=== PATIENT | male | born 1960 | race Caucasian/White ===

== ENCOUNTER 2024-01-13 12:34 | Emergency (ER) | payer BC, SELFPAY ==
[2024-01-13] VITALS (9 sets, daily range): BP systolic 178–223; BP diastolic 100–140; BMI 38.5
[2024-01-13 13:04] LABS: % Basophils 1.4 % (0-2); % Eosinophils 2.2 % (0-6); % Immature Granulocytes 0.3 % (0-0.5); % Lymphocytes 33.5 % (20.5-51.1); % Monocytes 9.6 % (1.7-9.3); Absolute Basophils 0.1 10^3/uL (0-0.2); Absolute Eosinophils 0.2 10^3/uL (0-0.7); Absolute Lymphocytes 2.6 10^3/uL (1.2-3.4); Absolute Monocytes 0.7 10^3/uL (0.1-0.6); Absolute Neutrophils 4.1 10^3/uL (1.4-6.5); Hematocrit 46.7 % (39.0-52.0); Hemoglobin 16.8 g/dL (13.0-18.0); Mean Corpuscular Hgb 30.7 pg (27.0-31.0); Mean Corpuscular Volume 85.4 fL (80.0-94.0); Mean Platelet Volume 11.1 fL (7.4-10.4); Nucleated Red Blood Cells % 0 % (-); Platelet Count 211 10^3/uL (130-400); Red Blood Cell Count 5.47 10^6/uL (4.70-6.10); Red Cell Dist. Width 13.4 % (11.5-14.5); White Blood Cell Count 7.7 10^3/uL (4.8-10.8)
[2024-01-13 13:17] LABS: ALT (SGPT) 34 U/L (0-50); AST (SGOT) 32 U/L (17-59); Albumin 4.6 g/dl (3.5-5.0); Alkaline Phosphatase 83 U/L (38-126); Blood Urea Nitrogen 15 mg/dl (9-20); Calcium 9.9 mg/dl (8.4-10.2); Carbon Dioxide 18 mmol/L (22-30); Chloride 106 mmol/L (98-107); Glucose 101 mg/dl (70-99); Potassium 4.1 mmol/L (3.5-5.1); Sodium 135 mmol/L (135-145); Total Bilirubin 0.7 mg/dl (0.2-1.3); Total Protein 8.1 g/dl (6.3-8.2); eGFR > 60.00
[2024-01-13 13:28] LABS: Troponin I < 0.012 ng/ml
--- NOTE | 2024-01-13 14:15 | ED.GENMED ---
History of Present Illness
General
Chief Complaint: Chest Pain
Source: patient
Exam Limitations: none
Time Seen by Provider: 01/13/24 13:18
Nursing documentation reviewed up to this point in time: agreed with
Travel History
Have you had any contact with someone who has COVID-19?: No
Do you have any symptoms of coronavirus? Fever > 100 degrees, chills, cough, shortness of breath, sore throat, loss of taste or smell, muscle aches, or headache?: No
History of Present Illness
History of Present Illness:
63-year-old male with a past medical history of hypertension. Presents to the emergency room for evaluation of hypertension. Patient reports that his blood pressure has been somewhat difficult to control; he is on Bystolic 20 mg p.o. daily,
valsartan�hydrochlorothiazide 320-25 mg daily; last week his primary doctor switched him from amlodipine 10 mg daily to diltiazem 240 mg daily. He says that after the switch his blood pressures were actually quite good he says ranging in the
110-120 systolic range. He says that over the past few days he has noticed gradual increase in his blood pressure today his blood pressure spiked up as high as 180�200 systolic. He says that he believes he got anxious started feel slightly dizzy
and had some slight chest pressure for short period of time. He decided to come to the emergency room to be assessed. He says symptoms have resolved since arrival here in the emergency room he feels much more calm. He denies any chest pain,
shortness of breath, headache, change in his vision, change in his speech, focal weakness or numbness in his extremities. He denies any other complaints. He follows with Dr. Vidales for primary care.
Past History
Past History
ED Past Medical History: HTN
ED Past Surgical History: None
Social History
Tobacco: Non-smoker
Alcohol: None
Drug: None
Personal:
Living: with family
Review of Systems
Review of Systems
All Other Systems: ROS reviewed and negative except as documented in HPI and ROS
Constitutional: Denies fever or chills
EENT: Denies sore throat or runny nose
Respiratory: Denies cough or trouble breathing
Cardiac: Reports chest pain; Denies diaphoresis or palpitations
ABD/GI: Denies abdominal pain, nausea or vomiting
: Denies flank pain
Musculoskeletal: Denies neck pain or back pain
Neurological: Denies headache, weakness or numbness
Phy Exam
Physical Exam
Physical Exam:
General: Awake, alert, oriented x3; no acute distress
Head: Normocephalic, atraumatic
Eyes: Conjunctiva normal, pupils equal round reactive to light bilaterally
Throat: Airway intact, handling secretions
Neck: Trachea midline, supple without meningismus
Lungs: Clear to auscultation bilaterally, no wheezing, rales, rhonchi
Heart: Regular rate and rhythm, no murmurs, gallops, or rubs
Abd: Soft, non distended, nontender with no masses
Neuro: Cranial nerves intact, speech fluid with no dysarthria or aphasia, no motor or sensory deficits
Skin: no rash
Extremities: No edema in extremities, equal pulses in all extremities
Scores
Heart Failure Risk
Heart Failure Risk Score: Not Applicable
Heart Score for Chest Pain Patients
STEMI patient?: Not applicable
Withdrawal Assessment of Alcohol
Withdrawal Assessment Completed?: Not applicable
Course
Orders/Labs/Results
Orders:
Orders
01/13/24 12:37
ECG [Electrocardiogram (*1)] Urgent
Reason for Study: Chest Pain
EKG- Treatment ONCE
01/13/24 12:53
Complete Blood Count/With Diff Urgent
Comprehensive Metabolic Panel Urgent
Troponin I Urgent
01/13/24 14:09
HydrALAZINE [Apresoline] 10 mg IV NOW STA
01/13/24 15:07
Troponin I Urgent
Abnormal Lab Results
01/13/24
12:53
MPV 11.1 H fL
(7.4-10.4)
Absolute Monos (auto) 0.7 H 10^3/uL
(0.1-0.6)
Monocytes % 9.6 H %
(1.7-9.3)
Carbon Dioxide 18 L mmol/L
(22-30)
Glucose 101 H mg/dl
(70-99)
01/13/24 12:53
01/13/24 12:53
Vital Signs
Initial and Last Documented VS:
Initial Vital Signs
Temp Pulse Resp BP Pulse Ox
36.9 C 68 20 219/130 94
01/13/24 12:45 01/13/24 12:45 01/13/24 12:45 01/13/24 12:45 01/13/24 12:45
Last Documented Vital Signs
Temp Pulse Resp BP Pulse Ox
36.9 C 61 20 178/100 94
01/13/24 12:45 01/13/24 15:50 01/13/24 12:45 01/13/24 15:50 01/13/24 12:45
MDM/Problems Addressed
Differential Diagnosis Includes:
Chest pressure/dizziness: dysrhythmia, anemia, acute MD, anxiety
MDM/Problems Addressed:
63-year-old male with history as above presents for evaluation of hypertension; he says that blood pressure was very high and he started to feel slightly dizzy and had pressure in his chest he believes related to anxiety. Medication regimen as
described above had a recent change last week from amlodipine to diltiazem. He presented with a blood pressure of 219/130 but vital signs otherwise normal. By the time arrival in the room his blood pressure improved to 185/135--still significantly
elevated. Plan to place an IV check labs including a CBC and a CMP will check troponin and EKG although low suspicion for acute MD. Nothing on exam to suggest acute aortic dissection despite his significant blood pressure elevation, symptoms have
completely resolved and in my judgment no further testing indicated for this diagnosis. Will monitor closely reassess after the above.
Initial labs reviewed: CBC unremarkable, CMP no clinically significant abnormalities, troponin undetectable. EKG shows no concerning changes. Blood pressure remains significantly elevated will treat with some low-dose hydralazine. I called
patient's primary doctor and discussed blood pressure medications, he recommended having patient double dose of diltiazem for the next few days he will see patient in the office on to further discuss blood pressure management.
Repeat troponin undetectable, blood pressure improving, plan to discharge with follow-up plan as above. Patient comfortable with this plan. Spoke about return precautions all questions answered.
Chronic conditions affecting care:
Hypertension
Acute Exacerbation and/or Progression of Chronic Illness:
Acutely hypertensive
*Pulse Oximetry
Patient hypoxic: no
*EKG
Interpreted by ED Provider?: Yes
Comparison EKG: no changes
Heart Rate: 69
Rate: normal
Rhythm: sinus
[place]: left axis deviation
QRS Pattern: left vent hypertrophy
Ischemia: no ischemia
*Critical Care Note
Total Time (30-74mins, 75-104mins- exclusive of procedures): Not Applicable
Data Reviewed
Review of Other/Old Records Reveals: Labs and Records
Source: patient and records
Patient Management
Discussion with other providers: PCP (Discussed with patient's primary physician)
ED Attending Note
-
Portions of this chart may have been created with voice recognition software.� Occasional wrong word or��sound alike� substitutions may have occurred due to the inherent limitations of voice recognition software.
Discharge Plan
Departure
Patient Disposition: Home (Routine Discharge)
Date of Disposition: 01/13/24
Time of Disposition: 16:05
Patient with high blood pressure during this ER visit?: Yes
Discharge Problem:
Hypertensive urgency
Instructions: BLOOD PRESSURE
Prescriptions:
No Action
aspirin 81 MG tablet,delayed release (DR/EC)
81 mg PO DAILY
amlodipine 10 MG tablet
10 mg PO DAILY
omeprazole magnesium [Prilosec OTC] 20 MG tablet,delayed release (DR/EC)
20 mg PO DAILY
valsartan-hydrochlorothiazide [Diovan HCT] 1 EACH tablet
1 tab PO DAILY
nebivolol [Bystolic] 10 MG tablet
20 mg PO DAILY
prednisone 10 MG tablet
10 mg PO Daily Qty: 20 0RF
Rx Instructions:
Take 5 tablets on days 1 and 2, then 4,3,2,1 on the days following.
Referrals:
Ambrocio Vidales DO [Family Provider] - 01/16/24
Activity Restrictions/Additional Instructions:
You should follow-up as scheduled with your primary doctor. You should double your dose of diltiazem as directed by your primary doctor.
Thank you for visiting the Emergency Department at [facility].
1. Please schedule a follow up appointment as directed. Call first thing tomorrow morning to make an appointment.
2. If indicated, please take your medications as instructed and indicated on discharge paperwork.
3. If any of your symptoms do not improve, or persist, or become more severe within 6-12 hours, please return to the emergency department for further care.
4. Please return to the emergency department if you develop a headache, neck pain/stiffness, fever greater than 100.4F, chest pain, shortness of breath, persistent nausea, vomiting, slurred speech, difficulty walking, numbness/tingling, weakness,
signs of infection or any other symptoms that are worrisome to you.
Please call [phone] if you have any questions.
Interventions
Interventions:
*Risk Screen - Suicide Last Done: 01/13/24 13:22
*General Assessment Last Done: 01/13/24 13:22
*Neglect/Abuse Screening Last Done: 01/13/24 13:22
ED- Fall Risk Assessment Last Done: 01/13/24 13:22
*ED COVID-19 Vaccine History Last Done: 01/13/24 12:45
ED- Cardiac Assessment Last Done: 01/13/24 13:22
Discharge Date and Time
Print Language: [id number]
[2024-01-13] MEDS: APRESOLINE 10 MG IV (14:29)
[2024-01-13 15:54] LABS: Troponin I < 0.012 ng/ml
== END 2024-01-13 16:10 | disposition home or self-care (01) ==
LOC: EMR 12:34
PROVIDERS: Emergency Medicine; EMERGENCY PHYSICIAN Emergency Medicine; FAMILY PHYSICIAN Family Medicine
DX: I16.0 Hypertensive urgency (principal)
CPT/HCPCS: 99284; 96374; 80053; 84484; 85025; 93005

== ENCOUNTER → 2024-09-02 07:39 | Outpatient (REF) | payer BC, SELFPAY | LOC: RAD 07:39 | PROVIDERS: ATTENDING PHYSICIAN Family Medicine | DX: I10 Essential (primary) hypertension (principal); Q27.1 Congenital renal artery stenosis; N18.1 Chronic kidney disease, stage 1 | CPT/HCPCS: 93975 ==